=== PATIENT | female | born 2000 | race Hispanic/Latino ===

== ENCOUNTER 2023-11-21 17:28 | Emergency (ER) | payer OTHER, SELFPAY ==
[2023-11-21 17:36] VITALS: BP 120/81; PULSE 62; RESP 16; TEMP 36.3; O2SAT 100
[2023-11-21 18:19] LABS: Influenza A QL RT-PCR Negative (Negative); Influenza B QL RT-PCR Negative (Negative); RSV RNA, RT-PCR Negative (Negative); SARS-CoV-2 RNA PCR Negative (Negative)
[2023-11-21 18:21] VITALS: O2SAT 100
[2023-11-21 18:23] VITALS: BP 108/68; PULSE 55; RESP 14; O2SAT 100
--- NOTE | 2023-11-21 19:04 | ED.URI ---
HPI - URI/Sore Throat General Chief Complaint: Upper Respiratory Infection Stated Complaint: CONGESTION,DIARRHEA Time Seen by Provider: 11/21/23 18:57 Source: patient Mode of arrival: ambulatory Limitations: no limitations History of Present Illness HPI Narrative: 23 yo with no PMH presents with congestion since Saturday. Diarrhea started in the past 24 hours and she has had 4-5 episodes. Also having nausea but denies vomiting. She notes that she had a sore throat initially but this resolved. [place] lightheaded. Having some pain at her neck. No fevers. Lives with her mother who has similar symptoms. LMP last Saturday. No abdominal pain. Related Data Allergies Allergy/AdvReac Type Severity Reaction Status Date / Time No Known Allergies Allergy Verified 11/21/23 18:23 Exam Narrative: GENERAL: Well-appearing, well-nourished, and in no acute distress. HEAD: Normocephalic, atraumatic. EYES: Non injected, non icteric ENT: Nares clear, no rhinorrhea or epistaxis. No anterior chain lymphadenopathy. Some posterior lymphadenopathy on the right, very mild. NECK: Supple. CHEST: Non labored. Speaking in full sentences. No respiratory distress. HEART: Regular rate and rhythm. . ABDOMEN: Soft, nondistended. EXTREMITIES: Normal range of motion. No edema. SKIN: Warm, dry, no rash. NEURO: No focal deficits. Alert and oriented x3. PSYCH: Normal mood and affect. Course Vital Signs Vital signs: Vital Signs Temperature 97.3 F L 11/21/23 17:36 Pulse Rate 62 11/21/23 17:36 Respiratory Rate 16 11/21/23 17:36 Blood Pressure 120/81 11/21/23 17:36 Pulse Oximetry 100 11/21/23 17:36 Oxygen Delivery Room Air 11/21/23 17:36 Temperature 97.3 F L 11/21/23 17:36 Pulse Rate 644 H 11/21/23 20:55 Respiratory Rate 20 11/21/23 20:55 Blood Pressure 118/72 11/21/23 20:55 Pulse Oximetry 100 11/21/23 20:55 Oxygen Delivery Room Air 11/21/23 18:21 MDM - URI/Sore Throat MDM Narrative Medical decision making narrative: Patient presents with congestion. Also developed nausea and diarrhea but no vomiting, fever, or abdominal pain. In the ED she is afebrile with VS within normal limits. Viral testing is negative but this does appear to be viral. test negative. Stable for discharge with Rx and return precautions. Differential Diagnosis Differential diagnosis: Likely upper respiratory infection, viral infection, influenza and other ([place], ) Lab Data Labs: Lab Results 11/21/23 11/21/23 Range/Units 17:36 19:27 Monoscreen Negative (Negative) Influenza A (RT-PCR) Negative (Negative) Influenza B (RT-PCR) Negative (Negative) RSV (RT-PCR) Negative (Negative) SARS-CoV-2 RNA (RT-PCR) Negative (Negative) UCG Bedside Result Negative Reference Range: Negative Discharge Plan Discharge Clinical Impression: Acute viral syndrome Patient Disposition: Home, Self-Care Condition: Stable Instructions: Antibiotic Form, Viral Syndrome (ED) Additional Instructions: You tested negative for influenza A, influenza B, covid, or RSV as well as [place]/EBV but I feel that your symptoms are still viral. The mainstays of treatment are rest and maintaining your hydration. You can use Tylenol/acetaminophen as well as ibuprofen for your symptoms and, if feeling nauseated, can use the ondansetron/Zofran which will help with that symptom to allow you to continue to take fluids. Follow up with your primary care physician as needed. If you don't have one, one is listed below. Return to the ED if new/worsening symptoms. Prescriptions: New acetaminophen 500 mg capsule 1,000 mg PO Q6H PRN (Reason: fever or pain) Qty: 30 0RF ibuprofen 600 mg tablet 600 mg PO TID PRN (Reason: fever or pain) Qty: 20 0RF ondansetron 4 mg tablet,disintegrating 4 mg PO Q8H PRN (Reason: nausea and vomiting) Qty: 7
[2023-11-21] MEDS: ONDANSETRON HCL ODT 4 MG TABLET PO (19:14)
--- NOTE | 2023-11-21 19:28 | PC.NURSE ---
Report given to Malia WRIGHT, all questions answered
--- NOTE | 2023-11-21 19:37 | PC.NURSE ---
this rn assumed care of patient. this rn took patient report from ADRIANA Marroquin.
[2023-11-21 20:23] LABS: Monoscreen Negative (Negative); Negative Monotest Control Negative (Negative); Positive Monotest Control Positive (Positive)
[2023-11-21 20:55] VITALS: BP 118/72; PULSE 644; RESP 20; O2SAT 100
== END 2023-11-21 20:55 | disposition home or self-care (01) ==
PROVIDERS: Preventive Medicine Aerospace Medicine; Emergency Provider Student in an Organized Health Care Education/Training Program
DX: B34.9 Viral infection, unspecified (principal); Z20.822 Contact with and (suspected) exposure to COVID-19
CPT/HCPCS: 36415; 81025; 86308; 87637; 99283; A9270

== ENCOUNTER 2025-03-10 15:17 | Outpatient (CLI) | payer BC, OTHER, SELFPAY ==
[2025-03-10 16:52] LABS: Syphilis IgG/IgM Antibody Non-Reactive (Nonreactive)
--- OUTSIDE RECORDS SUMMARY | 2025-03-10 17:10 | XMS_ITS | Clinical Summary ---
Author Organization [facility] [employer] Address [address] [place] [id number] Care Team Providers Care Shopping Inspector Name Role Phone Unavailable Primary Care Provider Unavailabl e Source Comments [facility],non-owned Affiliates and Associated Physician Practices is amultiple site organization consisting of ambulatory clinics and hospital sitesin [place], [place], [place] and [place]. This disclosure is being madepursuant to the Care Everywhere program and may not contain all information available regarding this patient. Last updated 18.[facility] [employer] Allergies Active Allergy Reactions Criticality Noted Date Comments Shellfish Allergy Unknown 09/14/2024 Medications * Be aware that medications may not be up to date on this document. Alwaysverify current medications with the patient. 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 She has no history or signs or symptoms of SLE or other rheumatologic conditions. This should not impact . Suggest repeating with her third trimester labs looking for infection per protocol. Precautions were reviewed. 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 She was worked up at [facility] in [facility] by Dr. Nelson. He writes A complete antiglobulin crossmatch is necessary and extra time will be required to find compatible blood. I reached out to Dr. Maldonado from [facility] who helps us with antepartum cases like these. The lab that was used for type and evaluation is most likely separate from [facility] who would need to be aware of previous workup and best strategy to cross match the patient in case she does need transfusion. Will await her review and recommendations. As far as the fetus goes, these antibodies rarely cause HDN. Will make further recommendations once I receive Dr. Maldonado response and will discuss with Dr. Bray as well if we are unable to coordinate blood for delivery at [place], as planned. Supervision of high risk , antepartum 1 Assessment & Plan (09/22/2024 10:05 AM REPORTING LEAD): Hannah presents with her boyfriend for counseling today. She is a healthy female at 15 5/7 weeks. Early anatomy survey and NIPT low risk. She has had several issues arise from her labs that will be discussed. She is healthy, has no rheumatology or skin concerns. No previous hospitalizations. No transfusions. 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 She was worked up at [facility] in [facility] by Dr. Nelson. He writes A complete antiglobulin crossmatch is necessary and extra time will be required to find compatible blood. I reached out to Dr. Maldonado from [employer] who helps us with antepartum cases like these. The lab that was used for type and evaluation is most likely separate from [facility] who would need to be aware of previous workup and best strategy to cross match the patient in case she does need transfusion. Will await her review and recommendations. As far as the fetus goes, these antibodies rarely cause HDN. Will make further recommendations once I receive Dr. Maldonado response and will discuss with Dr. Bray as well if we are unable to coordinate blood for delivery at [place], as planned. Estimated Date of Delivery Comme nts Yes 03/11/2025 Based on Ultraso und Social History Tobacco Use Types Packs/Day Years Used Date Smoking Tobacco: Never Smokeless Tobacco: Never Tobacco Cessation:Counseling Given: Not Answered Alcohol Use Standard Drinks/Week Comments Never 0 (1 standard drink = 0.6 oz pur e alcohol) Estimated Date of Delivery Comme nts Yes 03/11/2025 Based on Ultraso und Sex and Gender Information Value Date Recorded Sex Assigned at Not on file Legal Sex Female 9:20 AM REPORTING LEAD Gender Identity Not on file Sexual Orientation Not on file Last Filed Vital Signs Vital Sign Reading Time Taken Comments Blood Pressure 115/61 09/21/2024 2:02 PM REPORTING LEAD Pulse 77 09/21/2024 2:02 PM REPORTING LEAD Temperature - - Respiratory Rate 18 09/21/2024 2:02 PM REPORTING LEAD Oxygen Saturation - - Inhaled Oxygen Concentration - - Weight 74.4 kg (164 lb) 09/21/2024 2:02 PM REPORTING LEAD Height 170.2 cm (5' 7) 09/21/2024 2:02 PM REPORTING LEAD Body Mass Index 25.69 09/21/2024 2:02 PM REPORTING LEAD Plan of Treatment Health Maintenance Due Date Last Done Comments PAP SMEAR 2001 HPV VACCINE (1 - 3-dose series) 2016 MENINGOCOCCAL (Group B) VACCINE SHARED DECISION-MAKING (1 of 2 - Standard) 2017 HEPATITIS C SCREENING 03/31/2019 DTAP/TDAP/TD VACCINES (1 - Tdap) 2020 HEPATITIS B VACCINE (1 of 3 - 19+ 3-dose series) 2020 COVID-19 VACCINE (1 - 2023-2 5 season) 2024 DEPRESSION SCREENING 09/23/2024 OB-ONE HOUR GLUCOSE 12/03/2024 OB-TDAP CURRENT 12/10/2024 05/02/2012 OB-RHOGAM INJECTION 12/17/2024 OB-GROUP B STREP SCREEN 02/04/2025 INFLUENZA VACCINE (Season Ended) 2025 07/17/2016, 06/22/2013, 07/05/2010 CHLAMYDIA/GONORRHEA SCREENING 08/06/2025 08/06/2024 ZOSTER VACCINE (1 of 2) 2051 HIV SCREENING Completed 08/17/2024 HIB VACCINE Aged Out No longer eligi ble based on patient's age to complete this topic MENINGOCOCCAL GROUPS A/C/Y/W VACCINE Aged Out No longer eligible b ased on patient's age to complete this topic PNEUMOCOCCAL VACCINE Aged Out No long er eligible based on patient's age to complete this topic Respiratory Syncytial Virus (RSV) Vaccine Pt: or over 60 yrs (No Doses Required) Completed Insurance [facility]
--- OUTSIDE RECORDS SUMMARY | 2025-03-10 17:10 | XMS_ITS | Data Portability ---
Author Organization [facility] Address [address] [place] [address] Assessment Encounter Date Assessment Date Assessment LastModified by Organization Details LastModified Time 02/12/2025 02/12/2025 Patient is ___weeks . Discussed plan. Not available 02/12/2025 16:09:51 02/18/2025 02/18/2025 Patient is ___weeks . Discussed plan. Not available 02/18/2025 16:59:40 02/25/2025 02/25/2025 Patient is ___weeks . Discussed plan. Not available 02/25/2025 17:12:32 Plan of Treatment Reminders Order Date Submit Date Provider Last Modified By Organization Details Last Modified Time Details Appointments None recorded. Lab None recorded. Referral None recorded. Procedures None recorded. Surgeries None recorded. Imaging None recorded. Medication Orders Valtrex 500 mg tablet 025 025 [id number], [address], [place], [id number], 17:25:11 Patient TargetsNo targets recorded. Patient InstructionsNo instructions recorded. Reason for Referral None Reported. Results Created Date Observation Date Name Description Value Unit Range Abnormal Flag Note LastModifiedBy Organization Detail LastModifiedTime 02/13/2002/12/2025 CULTU RE: GROUP B STREP SCREE N, REFLE X SUSCE PTIBI LITY result report SEE RESULT S BELOW Test: Cultu re: Group B Strep , Refle x Susce ptibi lity ([facility]/ [facility] ) Speci men Sourc e: Vagin a/Rec messi Speci men Type: Vagin al/Re ctal Speci men Date: 2024 1556 Resul t Date: 2024 1408 Resul t Statu s: Final resul t Abnor mal: No Resul ting Lab: [facility] [address] [facility] [address] Tel: [phone] CULTU RE ----- ----- ----- --- No Group B strep isola su at 2 days (jazmin ctive broth enhan cemen t) Not Available [facility] (Lab) [address], [place], [address], 02/20/2025 19:11:14 02/13/2002/12/2025 CULTU RE: HSV/ VZV hsv culture/type Commen t abnormal Posit nicol for Herpe s simpl ex virus type- 1. Typin g was confi rmed by monoc lonal antib luda micro scopi c immun ofluo resce nce. Not Available [facility] (Lab) [address], [place], [address], 02/20/2025 19:11:14 02/13/2002/12/2025 CULTU RE: HSV/ VZV viral culture, rapid,varice lla Commen t Herpe s simpl ex virus was isola su and confi rmed by fluor escen t antib luda stain ing. The isola tion of Varic roni- Zoste r virus from this cultu re is not possi ble due to the growt h of Herpe s simpl ex virus . This does not rule out the possi bilit y of Varic roni- Zoste r virus infec tion. Not Available [facility] (Lab) [address], [place], [address], 02/20/2025 19:11:14 Result Notes None recorded. Problems Name Problem SNOMED Code Status Onset Date Resolution Date Notes Provider Name and Address Organization Details Recorded Time 61174378 Active 2023 Miladis Doyle null, [facility] 4 16:13:54 Antibody studies abnormal 441797512 Active 2023 - mfm referral sent pt scheduled [facility] 09/21 1PM US & OV & 2/7 1:45 US only Deliver y recommend ation TBD by MFM +for cold agglutin Anti A1 (a complete antiglobu nahum crossmatc h necessary and extra time will be required to find compatibl e blood Jolie yousif, [facility] 5 22:44:37 Antibody studies abnormal 279265947 Active 2023 - mfm referral sent pt scheduled [facility] 09/21 1PM US & OV & 2/7 1:45 US only Deliver y recommend ation TBD by MFM +for cold agglutin Anti A1 (a complete antiglobu nahum crossmatc h necessary and extra time will be required to find compatibl e blood Jolie yousif, [facility] 5 22:44:37 Chromosom e abnormali ty screening Active 2023 - no call for all but gender on NIPT - redraw LR male NIPT Gerson Bray MD [address], [place], [address], [facility] 5 16:33:33 Syphilis titer detected 884104224 Active 2023 - false positive -Repeat RPR in third trimester normal treponema l antibody testing in the 3rd trimester Gerson Bray MD [address], [place], [address], [facility] 5 16:33:32 Syphilis titer detected 490982610 Active 2023 - false positive -Repeat RPR in third trimester normal treponema l antibody testing in the 3rd trimester Gerson Bray MD [address], [place], [address], [facility] 5 16:33:32 Herpes simplex type 1 infection 705303693 Active 2024 no hx of genital outbreaks Jolie Templeton [facility] 5 12:09:50 Problem Notes None recorded. Procedures Surgical History Date Name Laterality Status Provider Name and Address Organization Details Recorded Time 3 Date of Last Pap Smear completed [facility] 08/06/2024 16:41:56 2 termination of completed [facility] 08/06/2024 16:43:45 Imaging Results None recorded. Procedure Notes None recorded. Medical Equipment None Reported. Allergies Allergen ID Allergen Name Allergen Category Reaction Reaction Severity Criticality Documentation Date Start Date Code Code System Note Provider Name and Address Organization Details Recorded Time shellfish derived food,medi cation Not available Not available Not available 10/05/2020 [id number] ANITRA Rodas [facility] 1 15:04:45 Medications Name Sig Start Date Stop Date Status Note LastModified by Organization Details LastModified Time acetaminoph en 500 mg tablet TAKE 2 TABLETS BY MOUTH EVERY 6 HOURS NEEDED FOR FEVER OR PAIN 08/06 completed Not Available Not Available Not Available amoxicillin 875 mg tablet TAKE 1 TABLET BY MOUTH TWICE DAILY FOR 10 DAYS 11/06 completed Not Available Not Available Not Available Valtrex 500 mg tablet Take 1 tablet twice a day by oral route. 2024 active Not Available Not Available Not Avai lable ibuprofen 600 mg tablet TAKE 1 TABLET BY MOUTH THREE TIMES DAILY NEEDED FOR FEVER OR PAIN 08/06 completed Not Available Not Available Not Available ondansetron 4 mg disintegrat ing tablet DISSOLVE 1 TABLET ON THE TONGUE EVERY 8 HOURS NEEDED FOR NAUSEA OR VOMITING 08/06 completed Not Available Not Available Not Available doxycycline hyclate 100 mg tablet Take 1 tablet twice a day by oral route for 7 days. 08/06 completed Not Available Not Available Not Available Depo-Band Tacker a 150 mg/mL intramuscul ar syringe Inject 1 mL every 3 months by intramusc ular route. 07/30 completed Not Available Not Available Not Available active Not Available Not Avai lable Not Available Vitals Date Recorded Body weight Systolic blood pressure Diastolic blood pressure Provider Name and Address Organization Details Last Updated DateTime 02/12/2025 94108.6587 4 g 125 mm[Hg] 82 mm[Hg] [facility] 02/12/2025 16:10:30 Date Recorded Body weight Systolic blood pressure Diastolic blood pressure Provider Name and Address Organization Details Last Updated DateTime 02/18/2025 81841.8434 8 g 118 mm[Hg] 78 mm[Hg] Nelia [facility] 02/18/2025 17:00:24 Date Recorded Body height Body mass index (BMI) Body weight Systolic blood pressure Diastolic blood pressure Provider Name and Address Organization Details Last Updated DateTime 02/25/2025 170.18 cm 32.6 kg/m2 78009.21 g 137 mm[Hg] 77 mm[Hg] [facility] 17:20:20 Date Recorded Body height Body mass index (BMI) Body weight Systolic blood pressure Diastolic blood pressure Provider Name and Address Organization Details Last Updated DateTime 03/05/2025 170.18 cm 32.9 kg/m2 54317.4 g 133 mm[Hg] 84 mm[Hg] [facility] 16:55:02 Date Recorded Body height Body mass index (BMI) Body weight Systolic blood pressure Diastolic blood pressure Provider Name and Address Organization Details Last Updated DateTime 03/08/2025 170.18 cm 32.4 kg/m2 53077.62 g 125 mm[Hg] 77 mm[Hg] MICKI Gonzalez [facility] 09:49:32 Social History Question Answer Notes LastModified by Organizat ion Details LastModified Time Tobacco Smoking Status Never Smoker Cathy yousif [facility] 10/05/2020 15:06:00 Are You Blind Or Do You Have Difficulty Seeing? No Information n ot available 01/30/2022 What Is Your Level Of Caffeine Consumption? Occasional Information not available 10/05/2020 In The 14 Days Before Symptom Onset, Have You Had Close Contact With A Laboratory-confirm ed COVID-19 While That Case Was Ill? No Information n ot available 08/06/2024 In The 14 Days Before Symptom Onset, Have You Had Close Contact With A Person Who Is Under Investigation For COVID-19 While That Person Was Ill? No Information not available 08/06/2024 Have You Been To An Area Known To Be High Risk For COVID-19? No Information not available 08/06/2024 Are You Deaf Or Do You Have Serious Difficulty Hearing? No Information not available 01/30/2022 What Type Of Diet Are You Following? REGULAR Information n ot available 01/30/2022 Do You Have Difficulty Walking Or Climbing Stairs? No Information not available 01/30/2022 Sex: Unknown Functional Status Question Answer Note LastModified by Organizat ion Details LastModified Time Do you use any illicit or recreational drugs? No Information not available 10/05/2020 What is your level of alcohol consumption? None Information not available 10/05/2020 Are you able to walk? YESWOREST Information not available 01/30/2022 Are you able to care for yourself? Yes Information n ot available 01/30/2022 Do you have difficulty dressing or bathing? No Information not available 01/30/2022 What is your exercise level? Moderate Information not available 01/30/2022 Mental Status None recorded. Family History Relationship Description Onset Age of this Age Resolved Age Notes LastModified by Organization Details LastModified Time Father No current problems or disability Not available 08/06 16:43:05 Mother No current problems or disability Not available 08/06 16:43:05 Medical History Condition Response Allergies (Food, seasonal, environmental ) N Other N Blood Transfusion N Drug/Latex Allergies/Reactions N Breast Cancer N Dermatologic Disorders N Lung Disease N Defects or Inherited Disease N Breast Problem N Gestational Diabetes N Hematologic disorders N Anesthesia Complications N History of STI N Deep Vein Thrombosis N Polycystic ovary syndrome N Anxiety Disorder N Autoimmune disease N Arthritis N Infertility N Polyps N Acid Reflux (GERD) N History of abnormal pap N Cancer N Stroke N Varicosities N Neurologic/Epilepsy N Endometriosis N High Cholesterol N Headaches N Fibromyalgia N Kidney Disease N Heart Problems N Kidney or Bladder Problems N Thyroid Problems N GI Problems N Eating Disorder N Anemia N Art (IVF or FET) N Psychiatric Illness N Ovarian Cancer N Diabetes N Pulmonary (TB, Asthma) N Hepatitis/Liver Disease N Eczema N Urinary Tract Infection N Abuse/Domestic Violence N Asthma N Trauma/Violence N Depression/ depression N Heart Disease N Pre-Eclampsia N Hypertension N Osteoporosis N Thrombophilias N Gynecological History Statement/Question Response STIs/STDs N Was last menstrual period normal Y HPV Vaccine Y Current Control Method Are cycles usually normal Y Sexually Active? Y Menses Monthly Y Age of first menstrual cycle 15 Date of Last Pap Smear 07/30/2023 Sexual Problems? N Desired Control Method LMP Unknown Obstetrics History GPAL:G 2 P 0 0 1 0 Type Value Induced 1 Total 2 Past Encounters Encounter ID Performer Location Encounter Start Date Encounter Closed Date Diagnosis/Indication Diagnosis SNOMED-CT Code Diagnosis ICD10 Code Diagnosis Note [id number] Lizbeth Egan MD [place] [address],[place] [address] 10/05/2020 14:54:48 10/05/2020 15:52:32 Gynecologic examination 95146746 Z01.419 Contracept ion care management 749553464 Z30.9 Depot cont raceptive status 437868451 Z92.0 Venereal d isease screening 660400033 Z11.3 [id number] Lizbeth Egan MD [place] [address] [address] 10/21/2020 16:21:18 01/16/2021 14:42:24 [id number] Gerson Bray MD [place] [address] [address] 11/15/2020 16:22:46 11/16/2020 14:58:02 Contraception care management 810384426 Z30.9 [id number] Gerson Bray MD [place] [address],[place] [address] 07/20/2021 16:19:27 07/21/2021 10:09:24 Contraception care management 096661865 Z30.9 [id number] Lizbeth Egan MD [place] [address],[place] [address] 10/09/2021 16:32:13 10/09/2021 18:12:31 Contraception care management 551612109 Z30.9 [id number] Lizbeth Egan MD [place] [address],[place] [address] 12/25/2021 16:36:48 12/26/2021 11:58:31 Contraception care management 200770845 Z30.9 [id number] Lizbeth Egan MD [place] [address],[place] [address] 01/30/2022 16:32:45 01/30/2022 18:00:02 Venereal disease screening 651393944 Z11.3 Sexually t ransmitted infectious disease 7187975 A64 Gynecologi c examination 10091435 Z01.419 Take Calcium with Vitamin D 1200mg daily if not receiving in daily diet. It is strongly advised to have an annual flu shot and up can obtain at most pharmacies . If you have not had a TDap shot in the last 10 years you should obtain one as well. Discussed with patient & provided with informatio n regarding Gardisil vaccine to prevent the 4 strains for HPV that cause cervical cancer. Encourage safe sexual practices, to use condoms and limit partners if not already in a monogamous relationsh ip. Do monthly self breast exams. BRCA testing is now available for patients with strong genetic history of female cancer. If interested contact the office. Engage in daily exercise of low impact aerobic exercise 45-60 minutes 4-5 times weekly. Avoid tobacco, illicit drugs, and alcohol. This lifestyle behavior pattern will lead to less health conditions and longer life span. If BMI greater than 25 weight watchers or dietary consult advised. Pap smear is not recommende d prior to the age of 21. If you have any concerns, pelvic, or vaginal problems we can discuss testing. Patient received above instructio ns, and questions have been answered. If you have any questions please call or respond to this email. Patient was made aware of the patient portal and may obtain a paper copy of today's plan if desired.WW E, no issuesCurr ently using Depo-Prove ra for control. She has noticed some weight gain with this method and does not want to continue.W nathan discussed all control methods in-depth. She does not want to be on anything else right now. She would like to think about other forms of control and call the office if she would like contracept ion.Encour aged condom use to help prevent and STI'sSTI urine sent, blood STI testing orderedEnc ouraged her establish care with a PCPRTC in one year for WWE or sooner if BC is desired [id number] WILLA Mehta [place] [address],[place] [address] 07/30/2023 11:52:28 07/30/2023 12:25:11 Gynecologic examination 47617324 Z01.419 WWEBC - [facility] pap collectedg c/ct/trich test added to papblood STI panel orderedPCP list given to pt and encouraged to scheduleRT C in 1 yr or sooner if needed Take Calcium with Vitamin D daily if not receiving in daily diet.It is strongly advised to have an annual flu shot and up can obtain at most pharmacies . If you have not had a TDap shot in the last 10 years you should obtain one as well. Discussed with patient & provided with informatio n regarding Gardisil vaccine to prevent the 4 strains for HPV that cause cervical cancer if under age 26.Encoura ge safe sexual practices, to use condoms and limit partners if not already in a monogamous relationsh ip.Do monthly self breast exams. Have mammogram yearly or every other year depending on family history. BRCA testing is now available for patients with strong genetic history of female cancer. If interested contact the office. Engage in daily exercise of low impact aerobic exercise 45-60 minutes 4-5 times weekly. Avoid tobacco and illicit drugs as well as using moderation with alcohol intake less than 1-2 8 oz beverages daily. This lifestyle behavior pattern will lead to less health conditions and longer life span. If BMI greater than 25 dietary consult advised. Patient received above instructio ns, and questions have been answered. If you have any questions please call or respond to this email. Patient was made aware of the patient portal and may obtain a paper copy of today's plan if desired. Venereal d isease screening 330682746 Z11.3 Sexually t ransmitted infectious disease 5149136 A64 [id number] WILLA Mehta [place] [address],[place] [address] 09/20/2023 09:52:55 09/20/2023 10:38:16 Venereal disease screening 356191659 Z11.3 SARAH sentsafe sexual practices discussed and encouraged repeat RPR ordered Time spent in visit is a total of 15 mins with at least 50% of visit consisting of counseling and review of plan of care. Chlamydial infection 105 719977 A74.9 [id number] Gerson Bray MD [place] [address],[place] [address] 08/06/2024 15:59:25 08/06/2024 16:26:23 screening 883659864 Z36.87 Z3A.09 [id number] Gerson Bray MD [place] [address],[place] [address] 08/06/2024 16:00:17 08/07/2024 02:08:42 Amenorrhea 66242436 N91.2 this patient is a 24-year-ol d female who presents for amenorrhea . She is a positive test. Ultrasound revealed a 1st trimester gestation. Patient has no complaints . We talked about early care. Talked about genetic screening. We talked about her ultrasound results. We talked about the 12 week ultrasound that has genetic screening components . She was given recommenda tions on exercise, diet, over-the-c ounter medication s. We reviewed her obstetric history. We reviewed her medical history. We reviewed her social history. She will begin routine care at her next visit. [id number] Gerson Bray MD [place] [address],[place] [address] 09/01/2024 15:27:07 09/01/2024 15:58:00 screening 496330301 Z36.82 Z3A.12 [id number] RAVIN FOX MD [place] [address],[place] [address] 09/01/2024 15:27:20 09/01/2024 16:46:37 Antibody studies abnormal 763020232 R76.9 - mfm referral sent Chromosome abnormality screening 999664901 Z13.79 - no call for all but gender on NIPT- redraw ordered today Syphilis t iter detected 764562095 A53.0 - RPR positive 1:1- negative TPA- reports hx of positive RPR, was never treated for syphilis, false positive Gestation period, 12 weeks 66315037 Z3A.12 [id number] Gerson Bray MD [place] [address],[place] [address] 11/06/2024 13:59:36 11/06/2024 15:13:53 screening for malformation 105480159 Z36.3 Z3A.22 [id number] RAVIN FOX MD [place] [address],[place] [address] 11/06/2024 14:02:40 11/06/2024 15:38:11 Antibody studies abnormal 698666729 R76.9 - mfm referral sent- positive for cold agglutinin anti A1- will need to check for compatible blood at [facility], awaiting MFM rects Chromosome abnormality screening 808833005 Z13.79 - no call for all but gender on NIPT- redraw LR male Syphilis t iter detected 601112457 A53.0 - RPR positive 1:1- negative TPA- false positive, repeat at 28 weeks Gestation period, 22 weeks 76192044 Z3A.22 - continue PNV [id number] Gerson Bray MD [place] [address],[place] [address] 12/02/2024 15:01:32 12/02/2024 16:16:21 screening 457346766 Z36.2 Z3A.25 [id number] RAVIN FOX MD [place] [address],[place] [address] 12/02/2024 15:06:50 12/15/2024 06:13:29 Routine care 114712669 Z34.91 - continue PNV [id number] RAVIN FOX MD [place] [address],[place] [address] 12/18/2024 15:12:36 12/21/2024 06:06:39 Syphilis titer detected 707243854 A53.0 - RPR positive 1:1- negative TPA- false positive, repeat today Gestation period, 28 weeks 54089758 Z3A.28 - GCT today- continue PNV [id number] Gerson Bray MD [place] [address],[place] [address] 12/28/2024 10:29:07 12/28/2024 12:05:13 Antibody studies abnormal 146909107 R76.9 O09.293 Z3A.29 [id number] Gerson Bray MD [place] [address],[place] [address] 12/28/2024 10:29:34 12/28/2024 12:32:12 Routine care 726413363 Z34.90 [id number] MD Lia De La Torre [address],[place] [address] 01/28/2025 15:53:42 01/28/2025 16:44:57 care status 106317552 Z34.83 [id number] MD Lia De La Torre [address],[place] [address] 02/12/2025 15:47:53 02/12/2025 16:42:49 care status 537333364 Z34.83 [id number] MD Lia De La Torre [address],[place] [address] 02/18/2025 16:20:11 02/18/2025 17:28:31 care status 921253162 Z34.83 [id number] MD Lia De La Torre [address],[place] [address] 02/25/2025 16:20:38 02/25/2025 17:31:55 Third trimester 36652315 Z34.03 [id number] RAVIN FOX MD [place] [address] [address] 03/05/2025 16:48:48 03/08/2025 08:45:44 Herpes simplex 34940242 B00.9 - herpetic arina of finger- will start valtrex suppressio n- discussed covering outbreaks if they recur to avoid exposure to Gestation period, 39 weeks 49248290 Z3A.39 [id number] RAVIN FOX MD [place] [address] [address] 03/08/2025 09:35:50 03/08/2025 10:12:10 Third trimester 13449008 Z34.03 Health Concerns Section Related Observation LastModified by Organization Detai ls LastModified Time None Recorded Concern Status LastModified by Organization Details LastModified Time None Recorded Advance Directives Directive None Recorded Payers Insurance Date Sequence Insurance Name Policy Number Policy Griffith Covered Member ID Griffith Member ID Guarantor Name 03/08/2025 1 [place] [id number] Hannah Cordon [id number] Hannah Cordon 01/25/2025 2 [facility] - DOS ON OR AFTER 21 (MEDICAID REPLACEMENT - HMO) Hannahabbey Cordon [id number] Hannahabbey Cordon 02/22/2025 2 [place] Hannahabbey Cordon [id number] Hannahabbey Cordon 10/26/2024 1 [place] [id number] Hannah Cordon [id number] Hannahabbey Cordon 11/06/2024 1 [place] Hannahabbey Cordon [id number] Hannah Cordon OBGyn Episode Ob Episode Information Episode Created Date Number of Fetuses Patient Bloodtype Patient rh Status Prepregnancy Weight lbs Domestic Partner Domestic Partner Phone Father Name Sider Status 09/01/20 24 1 AB Positive 164 Priscilla Temple OPEN Fetus Data First Name Last Name Admitted to NICU Weight (g) Sex Living Outcome Pediatric Complications Fetus ID Race Codes Race Delivery Type [id number] Problems Problem Notes Problem Name Start Date End Date Resolution Snomed Code Not e Antibody studies abnormal 09/01/2024 437259840 [facility] US & OV & 10/30 1:45 US onlyDelivery recommendation TBD by [facility] +for cold agglutin Anti A1 (a complete antiglobulin crossmatch necessary and extra time will be required to find compatible blood Syphilis titer detected 09/01/2024 749955610 - false positiv e-Repeat RPR in third trimester normal treponemal antibody testing in the 3rd trimester Herpes simplex type 1 infection 03/09/2025 101001677 no hx of genita l outbreaks Zain Calculation Initial Zain Date Initial Exam Date Initial Exam Provider Initial Ultrasound Date Last Menstrual Period Date Ultra Sound Weeks Gestation 03/11/2025 09/01/2024 08/06/2024 9 Eighteen To Twenty Week Zain Update Ultra Sound Date Fundal Height At Umbil Quickening Date Ultra Sound Latest Weeks Gestation Final Zain Confirmed By Final Zain Confirmed Date Final Zain Date Ultra Sound Latest Days Gestation 0 11/06/2024 03/11/20 25 0 Pre- Flowsheet Flowsheet Date 09/01/2024 Silva Score Blood Edema Fundus Height Fundus Units Glucose Ketones Leukocytes Nitrite Labor Signs Protein Cervic Dilation Cervic Effacement Cervic Station Type Weight in lbs Pre/Post Dialysis Refused Weight 164.404363187896 BP Diastolic BP Location Tested BP Systolic BP Type 62 L arm 128 sitting Fetus Heart Rate Present A 151 Fetus Movement Comments Presents to establish prenat al care. thus far uncomplicated. No severe nausea, no cramping or bleeding. NT/NB wnl today, no call NIPT previously, redraw ordered. Also had positive antibody screen, referral to [facility] for that as well. RPR positive with new OB labs, TPA negative. RTC 4 weeks for routine care Flowsheet Date 11/06/2024 Silva Score Blood Edema Fundus Height Fundus Units Glucose Ketones Leukocytes Nitrite Labor Signs Protein Cervic Dilation Cervic Effacement Cervic Station Type Weight in lbs Pre/Post Dialysis Refused BP Diastolic BP Location Tested BP Systolic BP Type Fetus Heart Rate Present Fetus Movement Comments Flowsheet Date 11/06/2024 Silva Score Blood Edema Fundus Height Fundus Units Glucose Ketones Leukocytes Nitrite Labor Signs Protein Cervic Dilation Cervic Effacement Cervic Station neg trace Type Weight in lbs Pre/Post Dialysis Refused 174.34997525953 BP Diastolic BP Location Tested BP Systolic BP Type 69 L arm 109 sitting Fetus Heart Rate Present Fetus Movement A Yes Comments Patient c/o swelling in feet . Good movement. Was seen by MFM for positive antibody testing, positive for cold agglutinin Anti A1. Awaiting further recommendations for MFM. Redraw NIPT wnl, LR male! False positive RPR, will repeat at 28 weeks. Anatomy incomplete today, neet RVOT and ductal arch. EFW 34%. Will repeat in 4 weeks. Plan for GCT and labs next visit as well. RTC 4 weeks. Flowsheet Date 12/02/2024 Silva Score Blood Edema Fundus Height Fundus Units Glucose Ketones Leukocytes Nitrite Labor Signs Protein Cervic Dilation Cervic Effacement Cervic Station Type Weight in lbs Pre/Post Dialysis Refused BP Diastolic BP Location Tested BP Systolic BP Type Fetus Heart Rate Present Fetus Movement Comments Flowsheet Date 12/02/2024 Silva Score Blood Edema Fundus Height Fundus Units Glucose Ketones Leukocytes Nitrite Labor Signs Protein Cervic Dilation Cervic Effacement Cervic Station neg none Type Weight in lbs Pre/Post Dialysis Refused Weight 182.393956913090 BP Diastolic BP Location Tested BP Systolic BP Type 66 L arm 113 sitting Fetus Heart Rate Present A Present Fetus Movement A Yes Comments Good movement, no cram ping or bleeding. Anatomy complete and normal, EFW 43%. Discussed GCT and labs for next visit. RTC 2 weeks. Flowsheet Date 12/18/2024 Silva Score Blood Edema Fundus Height Fundus Units Glucose Ketones Leukocytes Nitrite Labor Signs Protein Cervic Dilation Cervic Effacement Cervic Station neg none none neg Type Weight in lbs Pre/Post Dialysis Refused Weight 188.234966491096 BP Diastolic BP Location Tested BP Systolic BP Type 66 R arm 130 sitting Fetus Heart Rate Present A 130 Fetus Movement A Yes Comments Good movement. No cram ping or bleeding. GCT and labs today. Discussed pumping and . Discussed tdap vaccine. RTC 2 weeks. Flowsheet Date 12/28/2024 Silva Score Blood Edema Fundus Height Fundus Units Glucose Ketones Leukocytes Nitrite Labor Signs Protein Cervic Dilation Cervic Effacement Cervic Station Type Weight in lbs Pre/Post Dialysis Refused BP Diastolic BP Location Tested BP Systolic BP Type Fetus Heart Rate Present Fetus Movement Comments Flowsheet Date 12/28/2024 Silva Score Blood Edema Fundus Height Fundus Units Glucose Ketones Leukocytes Nitrite Labor Signs Protein Cervic Dilation Cervic Effacement Cervic Station Type Weight in lbs Pre/Post Dialysis Refused Weight 190.878818927189 BP Diastolic BP Location Tested BP Systolic BP Type 68 L arm 111 sitting Fetus Heart Rate Present Fetus Movement A Yes Comments no complaints, no problems, routine care, no contractions, no vaginal bleeding, no loss of fluid, no cramping Flowsheet Date 01/28/2025 Silva Score Blood Edema Fundus Height Fundus Units Glucose Ketones Leukocytes Nitrite Labor Signs Protein Cervic Dilation Cervic Effacement Cervic Station Type Weight in lbs Pre/Post Dialysis Refused 200.958944298987 BP Diastolic BP Location Tested BP Systolic BP Type 68 124 sitting Fetus Heart Rate Present A 140 Present Fetus Movement A Yes Comments no complaints, no problems, routine care, no contractions, no vaginal bleeding, no loss of fluid, no cramping Flowsheet Date 02/12/2025 Silva Score Blood Edema Fundus Height Fundus Units Glucose Ketones Leukocytes Nitrite Labor Signs Protein Cervic Dilation Cervic Effacement Cervic Station 2cm 40% -3 Type Weight in lbs Pre/Post Dialysis Refused 202.609763307077 BP Diastolic BP Location Tested BP Systolic BP Type 82 L arm 125 sitting Fetus Heart Rate Present A 136 Present Fetus Movement A Yes Comments no complaints, no problems, routine care, no contractions, no vaginal bleeding, no loss of fluid, no cramping Flowsheet Date 02/18/2025 Silva Score Blood Edema Fundus Height Fundus Units Glucose Ketones Leukocytes Nitrite Labor Signs Protein Cervic Dilation Cervic Effacement Cervic Station Type Weight in lbs Pre/Post Dialysis Refused 204.357136592849 BP Diastolic BP Location Tested BP Systolic BP Type 78 L arm 118 sitting Fetus Heart Rate Present A 140 Present Fetus Movement A Yes Comments no complaints, no problems, routine care, no contractions, no vaginal bleeding, no loss of fluid, no cramping Flowsheet Date 02/25/2025 Silva Score Blood Edema Fundus Height Fundus Units Glucose Ketones Leukocytes Nitrite Labor Signs Protein Cervic Dilation Cervic Effacement Cervic Station 2cm Type Weight in lbs Pre/Post Dialysis Refused Weight 208.257369415403 BP Diastolic BP Location Tested BP Systolic BP Type 77 L arm 137 sitting Fetus Heart Rate Present A 144 Present Fetus Movement A Yes Comments no complaints, no problems, routine care, no contractions, no vaginal bleeding, no loss of fluid, no cramping Flowsheet Date 03/05/2025 Silva Score Blood Edema Fundus Height Fundus Units Glucose Ketones Leukocytes Nitrite Labor Signs Protein Cervic Dilation Cervic Effacement Cervic Station 1cm 50% -3 Type Weight in lbs Pre/Post Dialysis Refused Weight 210.573778125168 BP Diastolic BP Location Tested BP Systolic BP Type 84 L arm 133 sitting Fetus Heart Rate Present A 145 Fetus Movement A Yes Comments Good movement. No cram ping or bleeding. Discussed EIL at due date if not delivered. 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 Discussed suppression with valtrex to avoid recurrence. Will send Rx. No hx of genital outbreaks. Return precautions discussed. RTC 1 week. Flowsheet Date 03/08/2025 Silva Score Blood Edema Fundus Height Fundus Units Glucose Ketones Leukocytes Nitrite Labor Signs Protein Cervic Dilation Cervic Effacement Cervic Station neg trace 2cm 50% -3 Type Weight in lbs Pre/Post Dialysis Refused Weight 207.593371344927 BP Diastolic BP Location Tested BP Systolic BP Type 77 L arm 125 sitting Fetus Heart Rate Present A 135 Fetus Movement A Yes Comments Good movement. No cram ping or bleeding. Has not yet picked up valtrex, encouraged today. SVE performed, 2cm and soft. Membrane sweep performed. Labor precautions reviewed. RTC 1 week. Menstrual History Last Menstrual Date Menses Monthly On Bcp Conception Prior Menses Frequency Hcg Plus Date Menarche Onset Age Delivery Information Delivery Date Delivery Type Labor Anesthesia Weeks Gestation Incision Type Labor Labor Length Hrs Delivered By Post Complications Tubal Sterilization Discharge Date Comments Discharge Information Feeding Method Contraceptive Method Maternal HG B and HCT Levels Ob Episode Information Episode Created Date Number of Fetuses Patient Bloodtype Patient rh Status Prepregnancy Weight lbs Domestic Partner Domestic Partner Phone Father Name Sider Status 07/30/20 23 1 CLOSED Fetus Data First Name Last Name Admitted to NICU Weight (g) Sex Living Outcome Pediatric Complications Fetus ID Race Codes Race Delivery Type , Induced [id number] Zain Calculation Initial Zain Date Initial Exam Date Initial Exam Provider Initial Ultrasound Date Last Menstrual Period Date Ultra Sound Weeks Gestation 0 Eighteen To Twenty Week Zain Update Ultra Sound Date Fundal Height At Umbil Quickening Date Ultra Sound Latest Weeks Gestation Final Zain Confirmed By Final Zain Confirmed Date Final Zain Date Ultra Sound Latest Days Gestation 0 0 Menstrual History Last Menstrual Date Menses Monthly On Bcp Conception Prior Menses Frequency Hcg Plus Date Menarche Onset Age Delivery Information Delivery Date Delivery Type Labor Anesthesia Weeks Gestation Incision Type Labor Labor Length Hrs Delivered By Post Complications Tubal Sterilization Discharge Date Comments 2 Discharge Information Feeding Method Contraceptive Method Maternal HG B and HCT Levels
== END 2025-03-10 15:18 | disposition home or self-care (01) ==
PROVIDERS: Visit Provider Obstetrics & Gynecology
DX: Z36.9 Encounter for antenatal screening, unspecified (principal)
CPT/HCPCS: 36415; 86593; 86850; 86860; 86870; 86880; 86900; 86901; 86902; 86905; 86971; 86978

== ENCOUNTER 2025-03-12 11:25 | Inpatient (IN) | payer BC, MEDICAID, SELFPAY ==
[2025-03-12] VITALS (8 sets, daily range): BP systolic 101–134; BP diastolic 64–105; PULSE 76–93; RESP 18–20; TEMP 36–37.1; O2SAT 97
[2025-03-12 12:31] LABS: Basophils Percent Auto 0.3 % (0.2-1.2); Eosinophils Absolute Auto 0.2 K/mm3 (0-0.3); Eosinophils Percent Auto 1.6 % (0-4.4); Hematocrit 35.3 % (37.0-47.0); Immature Granulocyte Absolute 0.08 K/mm3 (0.00-0.031); Immature Granulocyte Percent A 0.6 % (0-0.5); Lymphocytes Absolute Auto 1.43 K/mm3 (0.9-3.2); Lymphocytes Percent Auto 11.2 % (18.3-44.2); Mean Corpuscular Hemoglobin 32.7 pg (26-34); Mean Corpuscular Volume 96.2 fl (80-100); Mean Platelet Volume 10.9 fl (7.4-10.4); Monocytes Absolute Auto 0.8 K/mm3 (0.1-0.6); Monocytes Percent Auto 6.1 % (2.6-8.5); Neutrophils Absolute Auto 10.3 K/mm3 (1.3-6.7); Neutrophils Percent Auto 80.2 % (45.5-73.1); Platelet Count Result 219 k/mm3 (150-375); Red Blood Count 3.67 M/mm3 (4.2-5.4); Red Cell Distribution Width 11.9 % (11.5-14.5); White Blood Count 12.8 K/mm3 (4.5-10.0)
--- NOTE | 2025-03-12 12:49 | WPDOBADMIT ---
Obstetrics - Admit Note Admission Note: record reviewed. No pertinent additions to the history and/or any subsequent changes in the physical findings that are not consistent with the expected course of the were found. Patient presents 5cm, and giselle painfully. Admit for labor. AROM performed with small amount of clear fluid. Anticipate vaginal delivery. Additions to the history and/or subsequent changes in the physical findings follow. None.
--- NOTE | 2025-03-12 18:25 | PM.OBPRVD ---
OB - Vaginal Delivery Note Procedure Delivery date: 03/12/25 Induction method: None Delivery augmentation: Rupture of Membranes Delivery monitor: External FHT and External Uterine Route of delivery: Episiotomy description: None Laceration Description: None Delivery repair: vicryl Specimen: No Quantitative Blood Loss (ml): 100 Anesthesia type: Epidural Disposition: Floor Complications: No immediate complications Narrative: See H&P and notes for details on patient's admission and labor. She progressed to complete cervical dilation and at the appropriate time began pushing. With adequate expulsive efforts by the mother, the baby's head was delivered without difficulty. Nuchal cord was present x1 and was easily reduced. The baby's right shoulder was anterior and delivered under the pubic symphysis without difficulty. The posterior shoulder and the rest of the baby delivered without difficulty. The umbilical cord was doubly clamped and cut after 15 seconds of delayed cord clamping. Care of the was then assumed by the nursing staff. Baby Date of : 03/12/25 Time of : 18:13 Gestational Age by Date: 40 gender: Male presentation: compound (left hand) position: Left Occiput Anterior Placenta delivery description: Spontaneous Cord Vessel Description: 3 Vessels, Nuchal Cord (x1), Reduced and Clamped/Cut
[2025-03-12] MEDS: BENZOCAINE 20% AER SPR (*SP) 56 GM CAN 1 SPRAY TOPICAL (20:44)
[2025-03-12] MEDS: WITCH HAZEL 40 PADS 1 PAD TOPICAL (20:44)
[2025-03-13 00:16] VITALS: BP 111/61; PULSE 106; RESP 20; TEMP 36.4; O2SAT 97
[2025-03-13 04:49] LABS: Hematocrit 32.8 % (37.0-47.0); Hemoglobin 10.9 g/dL (12.0-15.0)
[2025-03-13 07:46] VITALS: BP 111/63; PULSE 78; RESP 18; TEMP 36.5; O2SAT 99
--- NOTE | 2025-03-13 08:30 | PC.NURSE ---
Primary RN updated this RN that mother felt pinchy on the right side during feedings. Primary RN stated that mother was currently - this RN at bedside to assess latch. Upon entering room, infants feeding was concluded. Introductions were made, then consulted with patient to assess needs related to . Mother states that she will call this RN with next feeding to assess latch. Mother confirmed that she did feel slight pinchy feeling on the right breast during feeding and she had difficulty overnight with latching to this specific side.
[2025-03-13] MEDS: MULTIVIT/MIN/PREN/FOL AC/IRON TABLET 1 TAB PO (08:35)
--- NOTE | 2025-03-13 09:00 | PC.NURSE ---
Called to patient bedside to assist with latching for feeding. Reviewed positioning and ear, shoulder, hip alignment, supporting the breast to facilitate a deep latch, asymmetrical latch (off-center), leading with the chin with a big, open, wide gape and body close to mother. latched optimally to the [right] breast in [football] position. Education given to the mother of how to visualize the suckling (with good rocking jaw motion), swallows (dropping of the lower jaw) and how to listen for drinking at the breast (the ka sound). Infant was [able] to maintain latch without pain to mother protecting the nipple with optimal positioning and latching. Reviewed comfort measures of healing with a warm, wet washcloth to rinse breast, then leave open to air-dry, good handwashing when or touching the breast/nipples to prevent infection. Cooling gel pads were provided as well as nipple cream for nipple discomfort. Mother voiced understanding of skin to skin, stimulating with massage touch, responsive feedings, hand expressed colostrum, talking to to encourage if it has been 2 -2.5 hours since the start of the last , to call if does not latch, or if there is discomfort with . Parents voiced understanding of information, demonstrated learning and will call if there is a request for assistance. Reported to the Primary RN.
--- NOTE | 2025-03-13 09:15 | PC.NURSE ---
Called to patient bedside to assist with switching to the left breast to continue feeding. Mother was able to position infant in the football position and latch . Mother states that the latch is painful. Demonstrated how to un-latch infant with breaking suction and assisted mother in obtaining a deeper latch on the left side. Mother states that the pain subsides but returned after approx. 10-15 sucks. Infant slips off the nipple, mother instructed to keep infant close to prevent from slipping. Mother states understanding and is able to demonstrate learning and states understanding education provided. Mother encouraged to call this RN for assistance with next feeding if needed.
--- NOTE | 2025-03-13 09:48 | P.PNOB_ITS ---
OB - PN: Subj Subjective Date/time seen: 03/13/25 09:48 Interval history: pp day 1 doing well OB - PN: Obj Data Labs 03/13/25 03:57 Labs: Laboratory Results - last 24 hr 03/12/25 03/13/25 12:25 03:57 WBC 12.8 H RBC 3.67 L Hgb 12.0 10.9 L Hct 35.3 L 32.8 L MCV 96.2 MCH 32.7 MCHC 34.0 RDW 11.9 Plt Count 219 MPV 10.9 H Immature Gran % (Auto) 0.6 H Neut % (Auto) 80.2 H Lymph % (Auto) 11.2 L Wilson % (Auto) 6.1 Eos % (Auto) 1.6 Baso % (Auto) 0.3 Lymph # (Auto) 1.43 Wilson # (Auto) 0.8 H Eos # (Auto) 0.2 Baso # (Auto) 0.0 Abs Immat Gran (auto) 0.08 H Absolute Neuts (auto) 10.3 H Absolute Nucleated RBC 0.000 Nucleated RBC % 0.0 OB - PN A/P Plan day: 1 Plan: routine care Time Spent With Patient Time: Total time spent is greater than 50% in coordination of care (as documented) at patient's floor/unit and/or counseling patient: Review of Systems 2 Review of Systems: All systems reviewed & are unremarkable except as noted in HPI and below Exam 2 Const: General: cooperative, healthy appearing and comfortable Chest: Chest palpation & inspection: normal inspection of the chest Resp: Effort & Inspection: normal respiratory effort
[2025-03-13 20:00] VITALS: BP 104/62; PULSE 88; RESP 18; TEMP 36.6
[2025-03-14 08:25] VITALS: BP 108/70; PULSE 85; RESP 16; TEMP 36.8; O2SAT 97
--- NOTE | 2025-03-14 08:39 | P.PNOB_ITS ---
OB - PN: Subj Subjective Date/time seen: 03/14/25 08:39 Interval history: pp day 2 doing well desires d/c home OB - PN: Obj Data Labs 03/13/25 03:57 OB - PN A/P Plan day: 2 Plan: routine care and discharge home Time Spent With Patient Time: Total time spent is greater than 50% in coordination of care (as documented) at patient's floor/unit and/or counseling patient: Review of Systems 2 Review of Systems: All systems reviewed & are unremarkable except as noted in HPI and below Exam 2 Const: General: cooperative, healthy appearing and comfortable Chest: Chest palpation & inspection: normal inspection of the chest Resp: Effort & Inspection: normal respiratory effort Cardio: Rate: regular rate Back/Spine/Pelvis: Back: no CVA tenderness
--- NOTE | 2025-03-14 08:41 | P.PNOB_ITS ---
OB - PN: Subj Subjective Date/time seen: 03/14/25 08:41 Interval history: pp day 2 doing well desires d/c home OB - PN: Obj Data Labs 03/13/25 03:57 OB - PN A/P Plan day: 2 Plan: routine care and discharge home Time Spent With Patient Time: Total time spent is greater than 50% in coordination of care (as documented) at patient's floor/unit and/or counseling patient: Review of Systems 2 Review of Systems: All systems reviewed & are unremarkable except as noted in HPI and below Exam 2 Const: General: cooperative and healthy appearing Resp: Effort & Inspection: normal respiratory effort Cardio: Rate: regular rate Back/Spine/Pelvis: Back: no CVA tenderness
--- NOTE | 2025-03-14 08:42 | PM.OBDSVD ---
DS: Admitting Diagnosis Discharge Date 03/14/25 Admitting Diagnosis labor DS: Discharge Diagnosis Discharge Diagnosis (1) (normal spontaneous vaginal delivery): Code(s): O80 - Encounter for full-term uncomplicated delivery Status: Acute OB - DS: Summary OB Procedures : None OB Procedures Intrapartum: Spontaneous Vag Delivery OB Procedures: : None Peripartum Data Laceration Description: None Episiotomy description: None Time Spent with Patient Time attestation: Total time spent providing and/or coordinating discharge services: Discharge Plan Discharge Attending physician on discharge: Stephen Richards Discharging Clinician: Maye Hammond Patient Disposition: Home Activity: pelvic rest Diet: regular Patient Instructions: Antibiotic Form Patient Language: French Stand Alone Forms: General Discharge Information Follow-up/Referrals: Stephen Richards MD [Physician] - 4 Weeks Discharge Medications: Continued PNV [id number] [] 28 mg iron- 800 mcg tablet 1 tablet PO DAILY acetaminophen 500 mg capsule 1,000 mg PO Q6H PRN (Reason: fever or pain) Qty: 30 0RF Date of admission: 03/12/25 11:25 Primary Care Provider: UNKNOWN,DOCTOR Admitting Provider: Stephen Richards Attending physician on admission: Stephen Richards Condition: Stable
[2025-03-14] MEDS: IBUPROFEN 600 MG TABLET PO (09:19)
[2025-03-14] MEDS: MULTIVIT/MIN/PREN/FOL AC/IRON TABLET 1 TAB PO (09:19)
[2025-03-14] MEDS: DOCUSATE SODIUM 100 MG CAPSULE PO (09:19)
--- NOTE | 2025-03-14 09:58 | PC.NURSE ---
Patient viewed the discharge video Mother & Baby Care, The First Two Weeks. Patient was given the opportunity and encouraged to ask questions. Patient verbalized understanding of information shared and has been given the mother/baby guide for home reference.
== END 2025-03-14 13:36 | disposition home or self-care (01) | DRG 807 ==
LOC: ANHLDR 12:05 → ANHOB2 21:00
PROVIDERS: Admitting Provider Obstetrics & Gynecology; Visit Provider Advanced Practice Midwife
DX: O32.6XX0 Maternal care for compound presentation, not applicable or unspecified (principal); Z37.0 Single live birth; Z3A.40 40 weeks gestation of pregnancy; O69.81X0 Labor and delivery complicated by cord around neck, without compression, not applicable or unspecified
CPT/HCPCS: 36415; 85014; 85018; 85025; 86593; 86850; 86860; 86870; 86880; 86900; 86901; 86902; 86905; 86971; 86978; A9270